=== PATIENT | female | born 1960 | race Caucasian/White ===

== ENCOUNTER 2016-09-25 07:32 | Day surgery (SDC) | payer OTHER ==
[~2016-09-25 07:32] MED LIST: LIDOCAINE W/ SODIUM BICARB 0.5 ML SYR ONE; Lactated Ringers 1,000 ML PRIMARY IV ONE
[2016-09-25 08:36] VITALS: RESP 12
[2016-09-25 08:54] VITALS: TEMP 97.4
--- NOTE | 2016-09-25 09:20 | GEN.OPNOTE ---
Colonoscopy Procedure Note Surgery Date: 09/25/16 Preoperative Diagnosis: Screening for colon cancer Postoperative Diagnosis: Screening for colon cancer. Mucosal irregularity to the ileocecal valve Procedure: Colonoscopy with biopsy Surgeon: Graeme Alegria MD Anesthesia Provider: Maddie Olson CRNA Anesthesia Type: MAC Indications: Colon cancer surveillance Findings: Prep : Excellent Cecum : Scope was advanced all the way to ileocecal valve. Cecal anatomy clearly identified. Cannulated ileocecal valve is see the terminal ileum which appeared to be normal. Patient a mucosal irregularity near the ileocecal valve. Biopsies taken Ascending : Ascending colons within normal limits no polyps tumors or cancers Transverse : Transverse colon was within normal limits no polyps tumors or cancers Sigmoid : Descending; free from disease Rectum : Rectum free from active disease Digital Rectal Exam : A lubricated flexible colonoscope was inserted and passed to the blind end of the cecum.
== END 2016-09-25 08:55 | disposition home or self-care (01) ==
LOC: SDSC 07:32
PROVIDERS: ATTEND Surgery
DX: Z12.11 Encounter for screening for malignant neoplasm of colon (principal)
CPT/HCPCS: 45380; J2704; J7120